=== PATIENT | female | born 1985 | race Caucasian/White ===

== ENCOUNTER 2022-08-04 12:00 | Day surgery (SDC) | payer BC, SELFPAY ==
--- NOTE | 2022-08-01 14:50 | PCM.HP.BLA ---
History and Physical Date of Admission: 07/04/22 HPI: The patient is a 36 year old female presenting for pre-operative visit. She is scheduled for vaginal cyst removal, for newly dx vaginal cyst, never had before on 08/04/22. Procedure discussed along with risks, benefits and complications. Other alternatives discussed for management. Consent form signed? Yes. ? ? PAST MEDICAL HISTORY PAST MEDICAL HISTORY Diagnosis Date ? Cervical high risk HPV (human papillomavirus) test positive 01/2016 ? History of ADHD ? ? went off medication 08/2016 ? LGSIL on Pap smear of cervix ? ? ? PAST SURGICAL HISTORY PAST SURGICAL HISTORY Procedure Laterality Date ? NONE ? CURRENT MEDICATIONS Current Outpatient Medications Medication Sig Dispense Refill ? amphetamine-dextroamphetamine XR (ADDERALL XR) 20 mg 24 hr capsule Take 1 capsule by mouth once daily for 30 days. 30 capsule 0 ? amphetamine-dextroamphetamine XR (ADDERALL XR) 20 mg 24 hr capsule Take 1 capsule by mouth once daily for 30 days. Do not start before March 08, 2022. 30 capsule 0 ? amphetamine-dextroamphetamine XR (ADDERALL XR) 20 mg 24 hr capsule Take 1 capsule by mouth once daily for 30 days. Do not start before April 07, 2022. 30 capsule 0 ? cyclobenzaprine (FLEXERIL) 10 mg tablet Take 1 tablet by mouth three times daily as needed for Muscle Spasm. 12 tablet 0 ? No current facility-administered medications for this visit. ? ? ALLERGIES: Patient has no known allergies. ? PERSONAL HISTORY: SOCIAL HISTORY Social History ? Tobacco Use ? Smoking status: Never ? Smokeless tobacco: Never Vaping Use ? Vaping Use: Never used Substance Use Topics ? Alcohol use: Yes ? ? Comment: occ ? Drug use: No ? FAMILY HISTORY: FAMILY HISTORY No family history on file. ? REVIEW OF SYMPTOMS: GENERAL: denies fevers or chills ENDOCRINOLOGY: has not been on steroids Cardiology : denies palpitations or chest pain Respiratory: denies SOB or cough Hematology: denies history of prolonged bleeding or easy bruising or VTE Allergy: Denies history of personal or family history of allergy to anesthesia ? PHYSICAL EXAMINATION: ? VITALS: Last menstrual period 07/05/2022. ? GENERAL: The patient is well nourished, well hydrated in no acute distress. , The patient is oriented to time, place, and person. NECK: Supple. No lynphadenopathy, normal thyroid, no thyromegaly. LUNGS: Clear to auscultation bilaterally. no wheezes, rhonchi or rales HEART: Regular rate and rhythm, Normal heart sounds, and No murmurs or gallops ? IMPRESSION: vaginal wall cyst ? PLAN: The risks/benefits/alternatives and personal involved for the planned removal of vaginal wall cyst were reviewed with the patient. Her questions were answered to her satisfaction and she desires to proceed. Consent was signed. I reviewed with her postop instructions and expectations. ? ? I have reviewed and updated past medical and surgical history, medications and allergies Assessment & Plan Assessment/Plan (1) Vaginal wall cyst:
[2022-08-04 12:31] VITALS: BP 136/78; PULSE 75; RESP 16; TEMP 36.4; O2SAT 98; BMI 28.0
[2022-08-04 12:32] LABS: Hematocrit 41.9 % (37-47); Hemoglobin 13.6 g/dL (12.0-15.0); Mean Corp Hgb Conc 32.5 g/dL (32-36); Mean Corpuscular Hgb 28.3 pg (27.0-32.0); Mean Corpuscular Volume 87.1 fL (81-99); Mean Platelet Vol. 9.5 fl (6.2-12.0); Platelet Count 259 K/mm3 (150-450); RBC Distribution Width CV 13.9 % (11.6-14.6); RBC Distribution Width SD 43.8 fl (35.1-43.9); Red Blood Count 4.81 M/mm3 (4.2-5.4); White Blood Count 8.3 K/mm3 (4.4-11.0)
[2022-08-04 12:35] LABS: Internal QC Validated? YES +Cl - CLEAR BKGD; Pregnancy, Urine Negative Negative
[2022-08-04] MEDS: Lactated Ringers 1,000 ML 15 ML IV (12:45)
[2022-08-04] MEDS: Bupivacaine 0.5% PF 10 ML VIAL (13:10)
--- NOTE | 2022-08-04 13:18 | DCINST_ITS ---
Discharge Instructions Diet Discharge Diet: No restrictions Activity May resume sexual activity in: 1 week Lifting Restrictions: none Dressing / Incision Call your doctor if your incision/area has: Sudden Increased Bleeding and Foul Smelling Discharge Call your doctor if you observe: Fever of 101 or Higher and Using more than 1 pad per hour (for 2 hrs in a row) Follow Up Care Please Follow Up With: Ashley Krishnamurthy MD When: YOu do not have to have a postop visit. You are cleared for all activities after 1 week. Call [phone] to make an appointment or with any concerns. Test Results: Test results from this visit will be discussed in further detail at your follow- up appointment, if applicable. Discharge Plan Admission Primary Reason for Your Visit: Cervical cyst removal Attending Provider: Ashley Krishnamurthy Primary Care Provider: Ang Clifton Discharge Orders/Prescriptions Prescriptions: Continued biotin 800 mcg Tablet 800 mcg PO DAILY Referrals / Follow Up: Ang Clifton MD [Primary Care Provider] - Disposition Disposition (needs filled in before D/C Order can be placed): Home, Self Care
--- NOTE | 2022-08-04 13:20 | PCM.OPRPT ---
Problems Associated Problem List Diagnoses (1) Cervical cyst: Report of Operation Date of Procedure: 08/04/22 Pre-Operative Diagnosis: Vaginal cyst Post-Operative Diagnosis: cervical cyst Surgery/Procedure Performed:: Removal of cyst from cervix Description of Surgical Findings:: large 7x4 cm mucous filled cyst and adjaced 2 cm mucous filled cyst off cervix at approximately 7 oclock, otherwise normal-appearing vulva, vagina and cervix Surgeon: Ashley Krishnamurthy telecommunicator: None Type of Anesthesia: MAC/Supplemental/Local Anesthesiologist: Jonathon Kirby Special Medications: none Specimen's removed: cervical cysts Drains: none Estimated Blood Loss (mL): 10 Fluids Replaced: 400 Description of Procedure: The patient was taken to the operating room where she was prepped and draped in normal dorsolithotomy position. The 2 cysts were noted to be protruding off of a small pedicle from the posterior cervical lip. I clamped across the base with a Cassia clamp and used the Bovie to remove the cysts. Both cysts were taken off with the same pedicle. They were filled with mucus and consistent with nabothian cyst. The base of the cyst was cauterized and then oversewn with 2-0 Vicryl in [id number] fashion. Hemostasis was noted. The vaginal instruments were removed. All sponge and needle counts were correct. A vaginal sweep was completed by me and the patient was awakened and taken to recovery room in stable condition. Grafts/Implants Used: none Procedure Start Time: 13:13 Procedure Stop Time: 13:16 Complications none Admit VTE Documentation VTE Present on Admission: No VTE Mechan Device Prophylaxis: SCD's VTE Pharm Prophylaxis ordered?: No Reason prophylaxis not ordered:: Procedure Not Indicated
[2022-08-04 13:25] VITALS: BP 127/79; PULSE 73; RESP 16; TEMP 36.7; O2SAT 97
[2022-08-04 13:30] VITALS: BP 127/79; BP 91/72; PULSE 76; RESP 16; O2SAT 98
--- NOTE | 2022-08-04 13:30 | CYST_PTH ---
PATIENT: JENAE MARAVILLA LOC: [facility] U#:[id number] AGE/SX: 36/F ROOM: RE08/04/[address]: Dr. Ashley Krishnamurthy MD : 1985 BED: DIS: 08/04/2022 SPEC #: [id number] RECD: 08/04/22 16:43 STATUS: KAYKAY PETTY #: [id number] ANGELO: 08/04/22 13:[address]: Ashley Krishnamurthy DEPT: SURGICAL PATHOLOGY RECD BY: Claire Munguia ENTERED: 08/07/22 12:00 SP TYPE: Cyst OTHR DR: Dr. Ang Clifton MD Tissues: Vagina, NOS Procedures: Surgery Specimen Level IV HEADER OPERATION: Vaginal cyst removal PRE-OP DIAGNOSIS: Cervical cyst TISSUE SUBMITTED: Cervical cyst MICROSCOPIC DIAGNOSIS Cervical cyst, biopsy: Polypoid fragments of ecto/endocervical polyp with benign endocervical cyst, inflamed. AM:heather 08/08/2022 COMMENT Case has been reviewed in consultation with Dr. Jovel who concurs with the above diagnosis. IDC:JUANPABLO MICROSCOPIC DESCRIPTION Slides are reviewed. GROSS DESCRIPTION Received in fixative is one container labeled with the patient's name and designated cervical cyst. The specimen consists of a alanis cyst measuring 4 x 4 x 1 cm. Also present in the container is a detached piece of tissue measuring 1 x 0.5 x 0.5 cm. Also present in the container are multiple fragments of mucoid tissue measuring 4.5 x 2 x 1 cm. The base of cyst is inked black. The cyst is filled with mucoid material. The largest cyst and detached piece of tissue are submitted in six cassettes. Mucoid material is not submitted. Cassette 1 contains the inked base margin of the larger cyst. / JUANPABLO:heather 08/07/2022 TC:1 CPT: 42250
[2022-08-04 13:35] VITALS: BP 121/85; BP 127/79; PULSE 75; RESP 16; O2SAT 99
[2022-08-04 13:40] VITALS: BP 123/87; BP 127/79; PULSE 69; RESP 16; TEMP 36.6; O2SAT 98
[2022-08-04 14:04] VITALS: BP 127/79
== END 2022-08-04 14:05 | disposition home or self-care (01) ==
LOC: SDC 12:04 → AC 12:05
PROVIDERS: Anesthesiology; PCP Family Medicine; Referring Provider Obstetrics & Gynecology; Visit Provider Obstetrics & Gynecology
PROC: (CPT 56740; principal; 2022-08-04 13:15)
DX: N89.8 Other specified noninflammatory disorders of vagina (principal)
CPT/HCPCS: 57135; 00940; 81025; 85027; 88304; 88305; J7120; J2405